=== PATIENT | female | born 1930 | race Caucasian/White ===

== ENCOUNTER → 2017-12-31 | Outpatient (CLI) | payer MEDICARE ==
[~2017-12-31] MED LIST: ALBU90OI INH; AMLO5 PO; ASPI81CH PO; BETA.05TO; BUDE6HFA INH; CITA20 PO; Cephalexin500 MG PO; Diflucan150 MG; ESTRTP VAG; FURO40 PO; HYDACE10B PO; HYDCHL12.5 PO; HYDR1TAB94 PO; Hydrocodone-Ap1 EA23 PO; LISI20 PO; OLAN5A MM; Omeprazole20 M1; POTCHL10ER; PRED10; Pravachol80 MG PO; Pravastatin Sod80 MG PO; Prinivil5 MG PO; Super B Comple150 MG PO; Zithromax250 MG PO
== END | disposition home or self-care (01) ==
LOC: LAB SHORT 07:33 → PLD 07:33
DX: C44.529 Squamous cell carcinoma of skin of other part of trunk (principal)
CPT/HCPCS: 88305

== ENCOUNTER 2018-01-11 12:24 | Emergency (ER) | payer MEDICARE ==
[~2018-01-11] VITALS: Ht 160 cm; Wt 68.0 kg
[2018-01-11] MEDS ORDERED: LISI20 (12:50)
[2018-01-11] MEDS ORDERED: PRED10 (12:50)
[2018-01-11] MEDS ORDERED: BUDE6HFA (12:50)
[2018-01-11] MEDS ORDERED: HYDCHL12.5 (12:50)
[2018-01-11] MEDS ORDERED: ALBU90OI (12:51)
[2018-01-11] MEDS ORDERED: HYDROCODON-ACE1 EAC3 (12:51)
[2018-01-11] MEDS ORDERED: CITA20 (12:51)
== END 2018-01-11 13:07 | disposition home or self-care (01) ==
LOC: ER 12:24
DX: S51.811A Laceration without foreign body of right forearm, initial encounter (principal); F03.90 Unspecified dementia, unspecified severity, without behavioral disturbance, psychotic disturbance, mood disturbance, and anxiety; Z79.899 Other long term (current) drug therapy; Z87.891 Personal history of nicotine dependence; W18.30XA Fall on same level, unspecified, initial encounter
CPT/HCPCS: 12002; 99283

== ENCOUNTER → 2018-02-17 | Outpatient (CLI) | payer MEDICARE ==
[~2018-02-17] MED LIST changes: +ALBU90OI; +BUDE6HFA; +CITA20; +HYDCHL12.5; +HYDROCODON-ACE1 EAC3; +LISI20
== END | disposition home or self-care (01) ==
LOC: LAB SHORT 09:31 → PLD 09:31
DX: C44.622 Squamous cell carcinoma of skin of right upper limb, including shoulder (principal)
CPT/HCPCS: 88305

== ENCOUNTER 2018-09-07 11:56 | Observation (INO) | payer MEDICARE ==
[~2018-09-07] VITALS: Ht 160 cm; Wt 63.7 kg
[~2018-09-07 11:56] MED LIST changes: -ALBU90OI; -BUDE6HFA; -CITA20; -HYDCHL12.5; -LISI20; +PRED10 PO
[2018-09-07 15:12] LABS: BASOPHILS ABSOLUTE AUTO 0.03 K/mm3 (0.00-0.23); BASOPHILS PERCENT AUTO 0 % (0-2); EOSINOPHILS ABSOLUTE AUTO 0.02 K/mm3 (0.00-0.68); EOSINOPHILS PERCENT AUTO 0 % (0-6); Hematocrit 41.3 % (33.0-51.0); Hemoglobin 13.6 g/dL (11.5-16.0); IMMATURE GRAN ABSOLUTE AUTO 0.19 K/mm3 (0.00-0.10); IMMATURE GRAN PERCENT AUTO 1 % (0-1); LYMPHOCYTES ABSOLUTE AUTO 1.15 K/mm3 (0.84-5.20); LYMPHOCYTES PERCENT AUTO 7 % (21-46); MONOCYTES ABSOLUTE AUTO 1.09 K/mm3 (0.16-1.47); MONOCYTES PERCENT AUTO 6 % (4-13); Mean Corpuscular HGB 32.5 pg (26.0-34.0); Mean Corpuscular HGB Conc 32.9 g/dL (31.5-36.5); Mean Corpuscular Volume 99 fL (80-100); Mean Platelet Volume 12.4 fL (9.1-12.4); NEUTROPHILS ABSOLUTE AUTO 14.88 K/mm3 (1.96-9.15); NEUTROPHILS PERCENT AUTO 86 % (41-73); Platelet Count 115 K/mm3 (150-400); RDW Coefficient Variation 13.4 % (11.7-14.2); Red Blood Cell Count 4.19 M/mm3 (3.80-5.20); White Blood Cell Count 17.36 K/mm3 (4.00-11.30)
[2018-09-07 15:38] LABS: Bun/Creatinine Ratio 26.3 (12.0-20.0); Calcium, Blood 9.3 mg/dL (8.5-10.1); Creatinine, Blood 1.18 mg/dL (0.40-1.00); Potassium, Blood 3.9 mmol/L (3.5-5.5)
[2018-09-07 16:32] LABS: Source, Urine Catheter
[2018-09-07 16:43] LABS: Appearance, Urine Clear (Clear); Bilirubin, Urine Neg (Neg); Blood, Urine 4+ (Neg); Color, Urine Yellow (P-Yellow); Glucose Qualitative, Urine Neg (Neg); Ketones, Urine Neg (Neg); Leukocyte Esterase, Urine Neg (Neg); Nitrite, Urine Neg (Neg); Protein, Urine Neg (Neg); Urobilinogen, Urine NORM (Normal)
[2018-09-07 16:59] LABS: White Blood Cells, Urine 0-2 /hpf (0-5)
[2018-09-07 17:00] LABS: Bacteria Not Seen /hpf; Mucus Light (0-Heavy); Squamous Epithelial Cells Rare /hpf (Few)
[2018-09-07] MEDS ORDERED: Super B-50 Com1 EACH PO (19:48)
--- NOTE | 2018-09-07 20:44 | NUR ---
PATIENT IS A NEW ADMIT FROM THE ED. THREE PERSON TRANSFER FROM [facility] TO BED. PATIENT IS BEDFAST. SEVERE DEMENTIA. NO HEALTH HX OBTAINABLE FROM PATIENT. ED RN ERIN REPORTS PRESENT IN ED FOR HEALTH HX AND WENT HOME. PATIENT ORIENTED TO SELF. SHORT TERM MEMORY DEFICIET. ON 2L O2 NC. SKIN TEARS WITH STERI STRIPS PLACE IN ED ON LEFT UPPER ARM/SHOULDER. DRESSING COMING OFF. WILL CONTINUE TO MONITOR.
--- NOTE | 2018-09-07 20:51 | NUR ---
PATIENT ACTIVATED BED ALARM TRYING TO EXIT BED. ED RN REPORTS PATIENT FELL AT HOME. PATIENT PUT BACK INTO BED. PATIENT NOT ABLE TO REORIENT. HX SEVERE DEMENTIA.
--- NOTE | 2018-09-07 20:59 | NUR ---
PATIENT PULLING HER GOWN OFF; PULLING AT IV SITE AND PULLING WOUND DRESSING OFF. GOWN PLACED BACK ON AND WOUND DRESSING WRAPPED.
--- NOTE | 2018-09-07 21:12 | NUR ---
PATIENT SWUNG LEGS TO SIDE OF BED. LEGS BACK INTO BED. PATIENT REPEATS WHO ARE YOU. BED ALARM ACTIVATED.
--- NOTE | 2018-09-07 22:15 | NUR ---
PATIENT ACTIVATED BED ALARM. TRYING TO EXIT BED. PULLING GOWN OFF AND PULLING AT WRAPPED IV. BED ALARM ACTIVATED.
--- NOTE | 2018-09-07 22:44 | NUR ---
RUI VEST AND BILATERAL SOFT WRIST RESTRAINTS ORDERED BY HOSPITALIST DR ROMERO. ORDERD PLACED.
--- NOTE | 2018-09-07 23:01 | NUR ---
PATIENT AGITATED AND HOSPITALIST DR ROMERO ORDERED ZYPREXA ZYDIS 5 MG X ONE. ORDERED PLACED.
--- NOTE | 2018-09-07 23:38 | NUR ---
PATIENT IN RUI VEST AND SOFT BILATERAL WRIST RESTRAINTS PER ORDER. PATIENT RESTING. ZYPREXA ZYDIS 5 MG PO GIVEN PER HOSPITALIST DR ROMERO.
--- NOTE | 2018-09-08 02:12 | NUR ---
PATIENT AWAKE SINCE ADMIT AT 20:00. CONTINUE TO ASK WHERE IS SHRUTHI. PATIENT NOT ABLE TO BE REORIENTED AT THIS TIME. RESTING IN BED. COVERS KICKED OFF AND WILL LEAVE OFF. WILL CONTINUE TO MONITOR.
--- NOTE | 2018-09-08 03:42 | NUR ---
SHIFT SUMMARY PATIENT IS A NEW ADMIT FROM THE ED. AXOX ONE TO SELF. HX SEVERE DEMENTIA. PATIENT TRIED TO EXIT THE BED FOR TWO HOURS BEFORE RUI AND BILATERAL SOFT WRIST RESTRAINTS ORDERED BY HOSPITALIST DR ROMERO. ZYPREXA ZYDIS ORDERED BY DR ROMERO X ONE FOR AGITATION 5 MG PO. PATIENT TOLERATING RESTRAINTS WELL FOR PATIENT SAFETY WITH HX OF FALLS. PIV REMAINS INTACT. ON 2L O2 NC AND RA BASELINE. ED STERI STRIPS ON LEFT UPPER ARM/SHOULDER SKIN TEAR. BEDFAST. PATIENT SHORT TERM MEMORY DEFICIT. REPEATS SAME QUESTION AFTER ANSWER WAS GIVEN. NOT ABLE TO REORIENT. NOT PRESENT FOR ADMIT. BED IN LOWEST POSITION. WILL CONTINUE TO MONITOR UNTIL DAY SHIFT NURSE ASSUMES CARE.
--- NOTE | 2018-09-08 06:34 | NUR ---
PATIENT AWAKE MOST OF THE SHIFT. WILL CONTINUE TO MONITOR
[2018-09-08] MEDS ORDERED: OXYC5 PO (12:43)
[2018-09-08] MEDS ORDERED: ACET325 PO (12:44)
[2018-09-08 13:30] LABS: Hematocrit 43.6 % (33.0-51.0); Hemoglobin 14.6 g/dL (11.5-16.0); Mean Corpuscular HGB 32.4 pg (26.0-34.0); Mean Corpuscular HGB Conc 33.5 g/dL (31.5-36.5); Mean Corpuscular Volume 97 fL (80-100); Mean Platelet Volume 12.5 fL (9.1-12.4); Platelet Count 114 K/mm3 (150-400); RDW Coefficient Variation 13.2 % (11.7-14.2); RDW Standard Deviation 47.1 fL (35.1-46.3); Red Blood Cell Count 4.51 M/mm3 (3.80-5.20); White Blood Cell Count 16.79 K/mm3 (4.00-11.30)
--- NOTE | 2018-09-08 18:59 | NUR ---
SHIFT SUMMARY STEPHANIE GOT OOB WITH PT ONCE WITH MAX ASSIST AND ONCE WITH A02 MAX TO BSC ONCE. DENIES PAIN IN BED, BUT SOME PAIN WITH STANDING. 5MG OXY GIVEN TO GOOD EFFECT. 2L OXYGEN, UNABLE TO WEAN DOWN TODAY, SATS 87-89 ON ROOM AIR. AND DAUGHTER AT BS MOST OF DAY. POSSIBLE SNF/MEMORY CARE OVER NEXT FEW DAYS. SKIN TEAR LUE CLEANED AND DRESSED TODAY. ENCOURAGED PO FLUIDS, BUT POOR INTAKE TODAY. INCONTINENT IN BRIEF. TOOK PILLS WHOLE WITH WATER. WCTM
--- NOTE | 2018-09-09 07:37 | NUR ---
in restraints for safety, complusive, wanted to get up and go home all night long and continued to try when not asleep, staff had to constantly redirect, Short term memory, 2L via nc, saline locked, call light in reach, walking rounds completed with day staff
--- NOTE | 2018-09-09 18:21 | NUR ---
SHIFT SUMMARY ALZHEIMER'S/DEMENTIA. REPEATEDLY ASKING SAME QUESTIONS. RUI. UNABLE TO STAND DUE TO WEAKNESS. FALLS AT HOME. SKIN TEAR TO LUE. COPD, AFIB. 2L PER NC.
--- NOTE | 2018-09-10 07:29 | NUR ---
alert at baseline, told repeatedly that she is at hospital due to fall at home, call paramjit in nessa, saline locked, 3L via ak
--- NOTE | 2018-09-10 18:40 | NUR ---
SHIFT SUMMARY ALZHEIMERS/DEMENTIA. REPETITIVELY ASKING SAME QUESTIONS. BED TO CHAIR 1-2 PERSON ASSIST. STANDS WITH MINIMAL ASSIST BUT WEAKNESS NOTED WHEN ATTEMPTING TO STEP FORWARD. MEDICATED IN A.M. FOR LEFT HIP PAIN. IN RECLINER LATER IN SHIFT QUIETLY READING NEWSPAPER. CHAIR ALARM ON. DECREASED PO INTAKE. INCONTINENT. POSSIBLE PLACEMENT TOMORROW; KINZA STRONG WORKING WITH PT AND SPOUSE.
--- NOTE | 2018-09-11 04:54 | NUR ---
SHIFT SUMMARY ALERT TO SELF; [place] AND EXTREMELY CONFUSED. CONTINUOUS RE-DIRECTION AND RE-ORIENTATION. DOES NOT KNOW WHERE SHE IS. CONTINUES TO TRY TO SELF TRANSFER FROM BED/CHAIR; BUT UNABLE TO STAND. REPLACED RUI VEST FOR SAFETY. OTHERWISE, VSS/AFEBRILE. RESPIRATIONS EVEN; EQUAL RISE AND FALL. NO OTHER ACUTE CHAGNES. BED IN LOWEST POSITION. ALARM ON. CALL LIGHT IN REACH. WCTM. REPORT TO ONCOMING RN.
--- NOTE | 2018-09-11 09:21 | NUR ---
GIVEN WARM PRUNE JUICE, MELTED PAT OF BUTTER AND APPLE JUICE. ADVISED PULLED IV BACK WINDER, NOT GETTING ANYTHING IV. NO IV ASSESS OK. MIRALAX PRN AND COLACE DAILY ORDERED.
--- NOTE | 2018-09-11 18:17 | NUR ---
ALERT TO SELF AND FAMILY. DOES NOT KNOW WHERE SHE IS. DEMENTIA. COOPERATIVE FOR THIS SHIFT, RUI Benitez'Gregory AT 10AM. ASSIST OOB TO CHAIR USING WALKER AND GAIT BELT. SHUFFLES FEET. NO C/O PAIN. ON 3 LPM OXYGEN VIA N/C. UNLABORED RESPIRATIONS. PATIENT HAS ONE HEARING AID IN TO LEFT SIDE. NO RT HEARING AID UPON DISTRICT SCOUT EXECUTIVE EVAL. HEARING AID NOT FOUND IN ROOM AND NOT SURE IF SHE HAD IT UPON ADMIT. RECEIVED NO IV ASSESS NEEDED PER . POSSIBLE D'C TO MEMORY CARE WHEN AVAILABLE. BED IN LOW POSITION. CALL LIGHT WITHIN REACH. WILL CONTINUE TO MONITOR.
--- NOTE | 2018-09-12 06:18 | NUR ---
SHIFT SUMMARY AROUND 0030 LAST NIGHT ER CALLED ME & NOTIFIED ME "PT IN 256 HAD CALLED 911, STATING SHE DIDN'T KNOW WHERE SHE WAS & WAS SCARED & COULDN'T MOVE." PT HAS BEEN AWAKE MOST OF NIGHT, CALLING OUT "SHRUTHI," & OTHER NAMES. PT VERY CONFUSED, AOX1. HX DEMENTIA. ASKS ME, "DO I HAVE A FAMILY?" PT DOES NOT KNOW WHERE SHE IS OR WHY SHE IS AT THE HOSPITAL, REORIENTED MULTIPLE TIMES & SOON I'M DONE TELLING PT WHERE SHE IS & WHY SHE STATES, "I DONT'T BELIEVE YOU, SOMETHING FISHY IS GOING ON." PT REPEATS THE SAME QUESTIONS. PT PLACED IN RUI VEST AROUND 0300 THIS AM DUE TO PT BEING A HIGH FALL RISK/IMPULSIVE & TRYING TO GET OOB W/O HELP, BED ALARM IS ALSO PLACED. VSS. DENIES N/V OR SOB. REPORTED BACK PAIN/R LEG PAIN THIS AM BUT REFUSED ANY MEDICATION. CALL LIGHT IS IN REACH & WCTM PT UNTIL DAY SHIFT RN ASSUMES CARE.
--- NOTE | 2018-09-12 17:51 | NUR ---
SUMMARY PT SITTING UP IN BED BEING ASSISTED WITH HER DINNER, PT HAS REMAINED CONFUSED ALL DAY AND DOES NOT REORIENT, DESPITE FAMILY BEING IN THE ROOM FOR MOST OF THE DAY, PT MED PER EMAR FOR PAIN, PT UP TO THE CHAIR SEVERAL TIMES WITH 2P ASSIST, VSS, NO ACUTE CHANGES, WILL CONT TO MONITOR
--- NOTE | 2018-09-12 20:18 | NUR ---
MOVED PT PT MOVED TO [facility] @ 2004. NOTIFIED SHRUTHI OF PT'S ROOM CHANGE @2019.
--- NOTE | 2018-09-13 04:56 | NUR ---
SHIFT SUMMARY: PT IS ALERT AND ORIENTED TO SELF, VERY CONFUSED OTHERWISE. PT IN VEST RESTRAINT, DID GET OUT OF IT ON ONE OCCASION, SET BED ALARM OFF. PT UP TO THE BSC WITH A 2 ASSIST ON ONE OCCASION. PT YELLING OUT AT TIMES WITH NO SPECIFIC NEED. PT ON 1 L O2 KEEPING SATS > 90%, WILL TAKE IT OFF AT TIMES AND HAVE MINOR DESATURATION. PT DENIES PAIN, NAUSEA, AND VOMITING. LUNGS ARE AUDIBLY COARSE AND WHEEZY. PT SLEPT INTERMITTENTLY THROUGHOUT THE NIGHT. NO ACUTE CHANGES OR COMPLICATIONS. BED IN LOW POSITION, CALL LIGHT WITHIN REACH.
--- NOTE | 2018-09-13 16:57 | NUR ---
SUMMARY PT HAS HX ALZ/DEMENTIA, SHE IS ORIENTED TO SELF & FAMILY HOWEVER VERY CONFUSED/DISORIENTED. IN RUI RESTRAINT D/T HIGH FALL RISK & CONFUSION. SHE HAS HAD FAMILY SITTING WITH HER MOST OF DAY & HAS BEEN ABLE TO REMAIN CALM. DX L PELVIC FX FROM FALL @ HOME. SHE HAS NOT HAD PAIN WHILE @ REST. SHE HAD NOT HAD BM X MULT DAYS, GAVE MIRALAX & COLACE SHE WAS ABLE TO HAVE XLRG BM ON BSC TODAY. PARTNER MARKETING INTERN REPORT NO SIGNIFICANT PAIN WHILE UP. SHE HAS BEEN SOMEWHAT FATIGUED, SLEEPING MOST OF DAY, AROUSES EASILY. VSS. STATE PT WILL D/C TO HOME WHEN APPROP, STATE HE IS WORKING TO PREPARE THE HOME.
--- NOTE | 2018-09-14 03:48 | NUR ---
BP 80/55, CALLED DR. QUARLES WHO ORDERED A 500 CC BOLUS. RECHECKED THE BP ONE MORE TIME BEFORE TRYING TO START AN IV AND IT HAD IMPROVED TO 101/55, DID NOT GIVE THE BOLUS.
--- NOTE | 2018-09-14 04:07 | NUR ---
SHIFT SUMMARY: PT IS ALERT TO SELF, VERY FORGETFUL, CONSTANTLY ASKING WHY SHE IS HERE, AND WHERE HERE IS. PT IS A 2 PERSON ASSIST TO THE BSC, MOSTLY CONTINENT. PT IS IN VEST RESTRAINT SHE IS TOO CONFUSED AND A VERY HIGH FALL RISK, WILL TRY TO GET OUT OF BED AND AMBULATE ON HER OWN. PT USING HER CALL LIGHT AT TIMES, BUT WITHOUT INTENT. PT DENIES PAIN, NAUSEA, VOMITING, AND SOB. PT SLEPT VERY LITTLE OVERNIGHT, CALLING OUT FOR FAMILY MEMBERS AND FOR HELP OFTEN. NO ACUTE CHANGES OR COMPLICATIONS OVERNIGHT. BED IN LOW POSITION, CALL LIGHT WITHIN REACH, BED ALARM SET. WILL REPORT TO DAY NURSE.
[2018-09-14 04:53] LABS: Hematocrit 41.5 % (33.0-51.0); Hemoglobin 13.5 g/dL (11.5-16.0); Mean Corpuscular HGB 31.9 pg (26.0-34.0); Mean Corpuscular HGB Conc 32.5 g/dL (31.5-36.5); Mean Corpuscular Volume 98 fL (80-100); Mean Platelet Volume 12.3 fL (9.1-12.4); Platelet Count 134 K/mm3 (150-400); RDW Coefficient Variation 13.4 % (11.7-14.2); RDW Standard Deviation 48.1 fL (35.1-46.3); Red Blood Cell Count 4.23 M/mm3 (3.80-5.20); White Blood Cell Count 10.51 K/mm3 (4.00-11.30)
[2018-09-14 05:19] LABS: Bun/Creatinine Ratio 62.2 (12.0-20.0); Calcium, Blood 9.8 mg/dL (8.5-10.1); Creatinine, Blood 1.8 mg/dL (0.40-1.00); Potassium, Blood 4.8 mmol/L (3.5-5.5)
--- NOTE | 2018-09-14 20:18 | NUR ---
SUMM- PT ALERT TO SELF AND FAMILY. SLEEPING THIS AM FOR ABOUT ONE HOUR. DAUGHTER INSISTED WE GET HER UP AND INTO A CHAIR AND GIVE HER COFFEE THOUGH PT HAD NOT SLEPT THROUGH THE NIGHT. GETS UP 2 PERSON MAX PIVOT TX WITH WALKER AND GAIT BELT. USING RUI RELATED TO IMPULSIVITY AND NO STM, WANTS TO GET UP AND ASKS FOR A KNIFE TO CUT HERSELF LOOSE. PULLING CONSTANTLY AT OXYGEN TUBING WONT KEEP IT IN PLACE. PULLS TELEVISION CAMERA OPERATOR LIGHT, DISROBES GOWN. BLANKETS ON GROUND. ASKS THE QUESTION, "WHATS GOING ON"- TOLD CIRCUMSTANCE AND ASKS SAME QUESTION AGAIN- ALL DAY ABOUT 400 TIMES. STAFF FREQ REORIENT OR STAY IN THE ROOM. PT OTHERWISE HALLING OUT "HEY". STARTED IV AND IVF AFTER DR BURNS EVALUATED PT THIS AM. PT PULLED IV OUT ABOUT 1830. PASSED REPORT TO FRANKY TO F/U WITH DR BURNS FOR HOW TO PROCEDE. PT BECOMING INCREASINGLY AGITATED THE LATER IT GETS.
--- NOTE | 2018-09-15 04:30 | NUR ---
SHIFT SUMMARY THE PATIENT PRESENTED THIS SHIFT A&O TO SELF ONLY, WITH LUNGS SOUNDS THAT WERE WHEEZEY THROUGHTOUT AND VITALS THAT WNL. THE PATIENT WAS RESTRIANED WITH A RUI VEST AND WHILE RESTRAINED, PULLED OUT HER IV. DR. BURNS WAS CONTACTED ABOU THE NEED FOR AM IV AND WAS ADDIMITT THAT THE PATIENT HAD A IV ACCESS AND FLUIDS RUNNING. THE DOCTOR GAVE ORDERS FOR SOLF WRIST RESTRAINTS TO BE USED TO MAINTAIN IV ACCESS. THE PATIENT HAD AN IV PLACED AND FLUIDS RESTARTED AND RESTRAINTS PUT IN PLACE. THE PATIENT HAS BEEN CONFUSED AND AWAKE ALL SHIFT, CALLING OUT. WILL CONTINUE TO MONITOR.
--- NOTE | 2018-09-15 04:51 | NUR ---
AT 0250 PT WAS GIVEN AN ALBUTEROL NEB TX VIA MASK, BS WERE DECREASED WITH UPPER AIRWAY WHEEZE. RA 91%, HR 74, RR 18. NOTE: LOCKED OUT OF PTS CHART, HELP DESK TICKET CREATED.
[2018-09-15 05:28] LABS: Hematocrit 36.7 % (33.0-51.0); Hemoglobin 11.9 g/dL (11.5-16.0); Mean Corpuscular HGB Conc 32.4 g/dL (31.5-36.5); Mean Corpuscular Volume 99 fL (80-100); Mean Platelet Volume 13.1 fL (9.1-12.4); Platelet Count 131 K/mm3 (150-400); RDW Coefficient Variation 13.4 % (11.7-14.2); RDW Standard Deviation 47.9 fL (35.1-46.3); Red Blood Cell Count 3.72 M/mm3 (3.80-5.20); White Blood Cell Count 13.48 K/mm3 (4.00-11.30)
[2018-09-15 06:00] LABS: Bun/Creatinine Ratio 52.9 (12.0-20.0); Calcium, Blood 9.6 mg/dL (8.5-10.1); Creatinine, Blood 1.7 mg/dL (0.40-1.00); Potassium, Blood 4.9 mmol/L (3.5-5.5)
--- NOTE | 2018-09-15 18:29 | NUR ---
SHIFT SUMMARY. ALERT, ORIENTATED TO SELF AND , AT BEDSIDE THIS AM AND THIS AFTERNOON. PT REPORTED CHRONIC PAIN TO HIP, RELIEVED WITH PRN ROXICODONE ONCE. PT WITH SPO2 85% ON RA, PLACED ON 1L O2 NC. NO N/V. POOR APPETITE. PT SLEEPING THIS AFTERNOON AFTER LUNCH, ASKED DR. POTTS IF WE COULD START THE NORVASC AND ONE TIME DOSE OF LASIX TOMORROW, DR. POTTS SAID YES. PER AND NURSE REPORT PT HAS NOT SLEPT MUCH AT ALL IN 48 HOURS. PT PARTICIPATED WITH PT/OT. AWAITING PLACEMENT. IV FLUIDS D/C'D.
--- NOTE | 2018-09-16 04:55 | NUR ---
SHIFT SUMMARY THE PATIENT PRESENTED THIS SHIFT WITH VITALS THAT EQUALED A VIEW SCORE OF 3. THE PATIENT HAD HAD BECOME IRRATATED AFTER WAKING UP CONFUSED. THE PATIENT'S LUNG SOUNDS ARE WHEEZEY THROUGHOUT. THE PATIENT MANAGED TO FREE ONE ARM FROM HER WRIST RESTRIANTS AND PULLED OUT HER IV. DOCTOR GRANT WAS CALLED AND AN ORDER FOR "NO IV ACCESS" WAS GIVEN BY THE DOCTOR AND RESTRIANTS WERE REDUCED TO A RUI VEST. THE PATIENT CONTINUES TO BE CONFUSED AND REQUIRES CALMING ON OCCASION. THE PATIENT HAS NOT SLEPT MUCH THIS SHIFT. WILL CONTINUE TO MONITOR.
[2018-09-16 05:20] LABS: BASOPHILS ABSOLUTE AUTO 0.03 K/mm3 (0.00-0.23); BASOPHILS PERCENT AUTO 0 % (0-2); EOSINOPHILS ABSOLUTE AUTO 0.12 K/mm3 (0.00-0.68); EOSINOPHILS PERCENT AUTO 1 % (0-6); Hematocrit 35.6 % (33.0-51.0); Hemoglobin 11.5 g/dL (11.5-16.0); IMMATURE GRAN ABSOLUTE AUTO 0.12 K/mm3 (0.00-0.10); IMMATURE GRAN PERCENT AUTO 1 % (0-1); LYMPHOCYTES ABSOLUTE AUTO 1.37 K/mm3 (0.84-5.20); LYMPHOCYTES PERCENT AUTO 12 % (21-46); MONOCYTES ABSOLUTE AUTO 1.07 K/mm3 (0.16-1.47); MONOCYTES PERCENT AUTO 9 % (4-13); Mean Corpuscular HGB 31.7 pg (26.0-34.0); Mean Corpuscular HGB Conc 32.3 g/dL (31.5-36.5); Mean Corpuscular Volume 98 fL (80-100); NEUTROPHILS PERCENT AUTO 77 % (41-73); Platelet Count 128 K/mm3 (150-400); RDW Coefficient Variation 13.4 % (11.7-14.2); RDW Standard Deviation 48.6 fL (35.1-46.3); Red Blood Cell Count 3.63 M/mm3 (3.80-5.20); White Blood Cell Count 11.91 K/mm3 (4.00-11.30)
[2018-09-16 06:12] LABS: Albumin, Blood 3.1 g/dL (3.4-5.0); Albumin/Globulin Ratio 1.1 (0.8-1.8); Bilirubin, Total 0.8 mg/dL (0.1-1.0); Bun/Creatinine Ratio 42.6 (12.0-20.0); Calcium, Blood 9.8 mg/dL (8.5-10.1); Creatinine, Blood 1.41 mg/dL (0.40-1.00); Globulin, Blood 2.8 g/dL (2.2-4.0); Magnesium, Blood 1.9 mg/dL (1.6-2.4); Potassium, Blood 4.7 mmol/L (3.5-5.5); Thyroid Stimulating Hormone 1.79 uIU/mL (0.360-4.800); Total Protein, Blood 5.9 g/dL (6.4-8.2)
--- NOTE | 2018-09-16 18:33 | NUR ---
SUMMARY PT CONTINUES DISORIENTED/CONFUSED, @ X'S IRRITABLE. HX ALZ/DEMENTIA. SHE IS IN RUI VEST RESTRAINT D/T CONFUSION, UNSTEADY GAIT, HIGH FALL RISK & ATTEMPTING UP W/O ASSIST. SHE IS RECOVERING FROM L PELVIC FX D/T FALL @ HOME. & DAUGHTER SUPPORTIVE, WORKING WITH [employer] FOR APPROPRIATE MEMORY CARE PLACEMENT. PT HAS BEEN UP IN CHAIR MUCH OF DAY. THIS AM RAIL BENDER ASSIST HER TO SHOWER. PHYTHER IN FOR TX TODAY, PT AMBULATE IN [place] WITH FWW. SHE WAS SOB W EXERTION, WHEEZY, PLACED ON O2 @ 2L, BIOX 92%. SHE APPEARS PAINFUL WITH AMBULATION THIS AM, PRN OXYCODONE GIVEN.
--- NOTE | 2018-09-17 06:01 | NUR ---
*SHIFT SUMMARY* PATIENT IS AWAKE AND TALKS WITH STAFF. VERY CONFUSED AND FORGETFUL. PATIENT IS IN RUI VEST FOR SAFETY. PATIENT CONTINUALLY TAKES OFF NASAL CANNULA. PATIENT TOOK HER GLASSES OFF AND BROKE THEM THROUGHOUT THE NIGHT. BROKEN PIECES ARE PLACED IN A BAG AT BEDSIDE. PATIENT DID NOT SLEEP THROUGHOUT THE NIGHT, SHE TRIED TO GET OUT OF HER RUI ALL NIGHT, TAKING OFF HER ATTENDS AND PULLING AT THE STRAPS OF THE RUI VEST. EARLY THIS AM PATIENT SUCCESSFULLY GOT OUT OF THE RUI VEST AND SET OFF BED ALARM. THIS RN AND VAMP MARKER ASSISTED PATIENT WITH GETTING IN A NEW GOWN AND RUI VEST AND REPOSITIONED, WRIST RESTRAINTS APPLIED. PATIENT DOES NOT COMPLAIN OF PAIN OR SHORTNESS OF BREATH YET HAS AUDIBLE WHEEZING. NASAL CANNULA AT 1L/MIN REAPPLIED TO PATIENT. CALL LIGHT WITHIN REACH, BED LOWERED AND LOCKED WITH ALARM ON.
--- NOTE | 2018-09-17 19:49 | NUR ---
SUMMARY PT CONTINUES IN RUI RESTRAINT, CONFUSED, HIGH FALL RISK, UNPREDICTABLE BEHAVIOR. SHE HAS BEEN UP IN CHAIR, AMBULATE IN ROOM W FWW TODAY. PARTICIPATE W PHYTHER. SHE GETS SOB/WHEEZY W EXERT, HAS REQUIRED NEBS & O2 PRN. @ REST 90-92 % RA. SHE SEEMS LESS PAINFUL TODAY, PRN OXYCODONE GIVEN THIS AM, HAS STATED NO PAIN WHEN ASKED THE REST OF DAY. VSS. [employer] WORKING W FAMILY FOR PLACEMENT.
--- NOTE | 2018-09-18 05:46 | NUR ---
*SHIFT SUMMARY* PATIENT IS CONFUSED AND IN RUI VEST WITH SOFT BILATERAL WRIST RESTRAINTS. AT BEGINING OF SHIFT PATIENT WAS JUST IN RUI VEST. PATIENT WAS FOUND TO HAVE TAKEN HER RUI VEST OFF AGAIN AND WAS SITTING AT THE EDGE OF THE BED NAKED. ASSISTED PATIENT BACK INTO RUI VEST AND REPOSITIONED IN BED, ORDER OBTAINED FOR BILATERAL WRIST RESTRAINTS WELL RUI VEST. THIS ORDER WILL 09/18/18 AT 2112. PATIENT DID NOT YELL OUT LIKE SHE DID LAST NIGHT, INSTEAD SHE SLEPT WELL. CALL LIGHT IN REACH, BED LOWERED AND LOCKED.
[2018-09-18] MEDS ORDERED: GAVILAX17 GM PO (11:20)
[2018-09-18] MEDS ORDERED: AMLO5 PO (11:21)
[2018-09-18] MEDS ORDERED: DOCU100 PO (11:22)
[2018-09-18] MEDS ORDERED: OLAN5 PO (11:23)
[2018-09-18] MEDS ORDERED: ROXICODONE5 MG (11:24)
--- NOTE | 2018-09-18 12:37 | NUR ---
DISCHARGE SUMMARY PT DISCHARGED TO [facility]. REPORT CALLED AND GIVEN TO WILBER AT 1145. PT LEFT ROOM VIA WHEELCHAIR AND [facility] AT 1140 WITH PT'S DAUGHTER PRESENT. NO IV IN PLACE. BELONGINGS RETURNED INCLUDING HEARING AIDES AND DENTURES.
== END 2018-09-18 11:51 ==
LOC: DELPENDDIS → ER 11:56 → MEDS 11:57 → ENPENDDIS 09-08 12:39 → MEDS 09-08 20:50 → ENPENDDIS 09-18 10:51 → EDPENDDIS 09-18 10:51 → MEDS 09-18 11:51
PROVIDERS: Emergency Medicine; Internal Medicine; Physician Assistant; ADMIT Internal Medicine
DX: S32.592A Other specified fracture of left pubis, initial encounter for closed fracture (principal); S41.112A Laceration without foreign body of left upper arm, initial encounter; N17.9 Acute kidney failure, unspecified; G30.9 Alzheimer's disease, unspecified; F02.80 Dementia in other diseases classified elsewhere, unspecified severity, without behavioral disturbance, psychotic disturbance, mood disturbance, and anxiety; N18.3 Chronic kidney disease, stage 3 (moderate); I48.0 Paroxysmal atrial fibrillation; J44.9 Chronic obstructive pulmonary disease, unspecified; D72.829 Elevated white blood cell count, unspecified; F17.290 Nicotine dependence, other tobacco product, uncomplicated; Z79.899 Other long term (current) drug therapy; W01.0XXA Fall on same level from slipping, tripping and stumbling without subsequent striking against object, initial encounter; Y92.009 Unspecified place in unspecified non-institutional (private) residence as the place of occurrence of the external cause
CPT/HCPCS: 36415; 70450; 72100; 72193; 73030; 73502; 80048; 80053; 81001; 83735; 84443; 85025; 85027; 94640; 94760; 96360; 96361; 96372; 96372-59; 97110; 97116; 97162; 97166; 97530; 97535; 99285-25; G0378; J1650; J3010; J7120; P9612; Q9967

== ENCOUNTER → 2018-10-27 | Outpatient (CLI) | payer MEDICARE ==
[~2018-10-27] MED LIST changes: +ACET325 PO; +DOCU100 PO; +GAVILAX17 GM PO; +OLAN5 PO; +OXYC5 PO; +ROXICODONE5 MG; +Super B-50 Com1 EACH PO
== END | disposition home or self-care (01) ==
LOC: LAB HH 15:29
DX: S01.309A Unspecified open wound of unspecified ear, initial encounter (principal)
CPT/HCPCS: 87070; 87077; 87147; 87186; 87205

== ENCOUNTER 2018-11-24 09:17 | Inpatient (IN) | payer MEDICARE ==
[~2018-11-24] VITALS: Ht 157.5 cm; Wt 57.2 kg
[~2018-11-24 09:17] MED LIST changes: -ROXICODONE5 MG; +ROXICODONE5 MG PO
[2018-11-24 10:38] LABS: BASOPHILS ABSOLUTE AUTO 0.02 K/mm3 (0.00-0.23); BASOPHILS PERCENT AUTO 0 % (0-2); EOSINOPHILS ABSOLUTE AUTO 0.15 K/mm3 (0.00-0.68); EOSINOPHILS PERCENT AUTO 1 % (0-6); Hematocrit 44.1 % (33.0-51.0); Hemoglobin 13.4 g/dL (11.5-16.0); IMMATURE GRAN ABSOLUTE AUTO 0.08 K/mm3 (0.00-0.10); IMMATURE GRAN PERCENT AUTO 1 % (0-1); LYMPHOCYTES ABSOLUTE AUTO 0.87 K/mm3 (0.84-5.20); LYMPHOCYTES PERCENT AUTO 7 % (21-46); MONOCYTES PERCENT AUTO 8 % (4-13); Mean Corpuscular HGB 30.9 pg (26.0-34.0); Mean Corpuscular HGB Conc 30.4 g/dL (31.5-36.5); Mean Corpuscular Volume 102 fL (80-100); Mean Platelet Volume 11.9 fL (9.1-12.4); NEUTROPHILS ABSOLUTE AUTO 10.53 K/mm3 (1.96-9.15); NEUTROPHILS PERCENT AUTO 83 % (41-73); Platelet Count 165 K/mm3 (150-400); RDW Coefficient Variation 14.4 % (11.7-14.2); RDW Standard Deviation 54.7 fL (35.1-46.3); Red Blood Cell Count 4.33 M/mm3 (3.80-5.20); White Blood Cell Count 12.65 K/mm3 (4.00-11.30)
[2018-11-24 10:55] LABS: Albumin, Blood 3.2 g/dL (3.4-5.0); Albumin/Globulin Ratio 0.9 (0.8-1.8); Bilirubin, Total 0.9 mg/dL (0.1-1.0); Calcium, Blood 9.8 mg/dL (8.5-10.1); Creatinine, Blood 1.06 mg/dL (0.40-1.00); Globulin, Blood 3.7 g/dL (2.2-4.0); Potassium, Blood 4.6 mmol/L (3.5-5.5); Total Protein, Blood 6.9 g/dL (6.4-8.2)
--- NOTE | 2018-11-24 15:00 | NUR ---
SKIN TEARS/SKIN CONDITION WHEN PT ARRIVES TO UNIT, PT IS FOUND TO HAVE SEVERAL SKIN TEARS AND SCABS. SCATTERED T/O ARMS AND LEGS. STERI STRIPS ON L SHOULDER ABRASION, R ZEPEDA, L LATERAL KNEE, BRUISING ON ARMS, SHOULDERS, AND LEGS. PT BECOMES AGIATED WHEN PHOTOS ATTEMPTED. STATES THIS IS FROM FREQUENT FALLS AND CHRONICALLY BEING ON PREDNISONE.
--- NOTE | 2018-11-24 16:29 | NUR ---
CRAWLING OUT OF BED AFTER PATIENT REDIRECTED SEVERAL TIMES, BED ALARM ON, AT BEDSIDE REDIRECTING AND REORIENTING EVERY 5 MINS, PATIENT CONTINUES TO ATTEMPT TO CRAWL OUT OF BED. RUI KAY ORDERED FROM .
[2018-11-24 20:52] LABS: Source, Urine Catheter
[2018-11-24 20:56] LABS: Bilirubin, Urine Neg (Neg); Blood, Urine 1+ (Neg); Glucose Qualitative, Urine Neg (Neg); Ketones, Urine Neg (Neg); Leukocyte Esterase, Urine 3+ (Neg); Nitrite, Urine Neg (Neg); Protein, Urine 2+ (Neg); Urobilinogen, Urine 1+ (Normal)
[2018-11-24 20:58] LABS: Appearance, Urine Clear (Clear); Color, Urine Yellow (P-Yellow)
[2018-11-24 21:01] LABS: Bacteria Mod /hpf; Red Blood Cells, Urine 0-2 /hpf (0-2); Squamous Epithelial Cells Few /hpf (Few); White Blood Cells, Urine 25-50 /hpf (0-5)
[2018-11-25 05:18] LABS: BASOPHILS ABSOLUTE AUTO 0.03 K/mm3 (0.00-0.23); BASOPHILS PERCENT AUTO 0 % (0-2); EOSINOPHILS ABSOLUTE AUTO 0.15 K/mm3 (0.00-0.68); EOSINOPHILS PERCENT AUTO 1 % (0-6); Hematocrit 44.3 % (33.0-51.0); Hemoglobin 13.4 g/dL (11.5-16.0); IMMATURE GRAN ABSOLUTE AUTO 0.06 K/mm3 (0.00-0.10); IMMATURE GRAN PERCENT AUTO 1 % (0-1); LYMPHOCYTES ABSOLUTE AUTO 1.55 K/mm3 (0.84-5.20); LYMPHOCYTES PERCENT AUTO 13 % (21-46); MONOCYTES ABSOLUTE AUTO 1.08 K/mm3 (0.16-1.47); MONOCYTES PERCENT AUTO 9 % (4-13); Mean Corpuscular HGB 30.7 pg (26.0-34.0); Mean Corpuscular HGB Conc 30.2 g/dL (31.5-36.5); Mean Corpuscular Volume 101 fL (80-100); Mean Platelet Volume 12.1 fL (9.1-12.4); NEUTROPHILS ABSOLUTE AUTO 9.18 K/mm3 (1.96-9.15); NEUTROPHILS PERCENT AUTO 76 % (41-73); Platelet Count 173 K/mm3 (150-400); RDW Coefficient Variation 14.3 % (11.7-14.2); RDW Standard Deviation 53.5 fL (35.1-46.3); Red Blood Cell Count 4.37 M/mm3 (3.80-5.20); White Blood Cell Count 12.05 K/mm3 (4.00-11.30)
[2018-11-25 05:39] LABS: Anion Gap 5 mmol/L (6-16); Blood Urea Nitrogen 20 mg/dL (8-24); Bun/Creatinine Ratio 25.1 (12.0-20.0); CO2, Blood 29 mmol/L (21-32); Calcium, Blood 9.5 mg/dL (8.5-10.1); Chloride, Blood 107 mmol/L (98-108); Glomerular Filtration Rate >60 (60-); Glucose, Blood 81 mg/dL (70-99); Potassium, Blood 4.1 mmol/L (3.5-5.5); Sodium, Blood 141 mmol/L (136-145)
--- NOTE | 2018-11-25 06:19 | NUR ---
SUMMARY NO CHANGES FROM ASSESSMENT. IV FLUIDS INFUSING PER EMAR. PT CONTINUES TO REFUSE PAIN MEDICINE. MOVES ALL EXTREMITIES AND TRIES TO GET OUT OF BED. RUI VEST IN PLACE, BED ALARM IS ON, CIRC WNL. BED ROTHMAN USED PRN.
--- NOTE | 2018-11-25 09:40 | NUR ---
SKIN AFTER STEM SIZER PERFORMED BED BATH, PROTECTIVE MEPILEX DRESSING APPLIED TO COCCYX. HEEL PROTECTORS APPLIED TO BILAT HEELS AND FLOATED ON PILLOW. PT REPOSITIONED SUPINE AT THIS TIME.
--- NOTE | 2018-11-25 11:55 | NUR ---
PT TRANSPORTED TO [facility]. PT HAS ALZHEIMERS, AT BEDSIDE SPEAKING ON PATIENTS BEHALF. LUNG SOUNDS CLEAR.
--- NOTE | 2018-11-25 12:00 | NUR ---
PT TO DAY SURGERY AT THIS TIME.
--- NOTE | 2018-11-25 16:02 | NUR ---
POST OP POST OP VS IN PROGRESS AND STABLE. AQUACEL DRESSING TO LEFT HIP IS CDI WITH PILLOW WEDGE IN BETWEEN HIPS. IVF INFUSING PER ORDERS. PT APPEARS TO BE COMFORTABLE AT REST. MARTÍNEZ WITH CLEAR YELLOW URINE. BED ALARM ON FOR SAFETY. FAMILY AT BEDSIDE FOR SUPPORT. WATER AT BEDSIDE. WILL CONT TO MONITOR.
--- NOTE | 2018-11-25 17:58 | NUR ---
SHIFT SUMMARY S/P LEFT HIP REPAIR. POST OP VSS AND IN PROGRESS. NO S/S DISTRESS OR PAIN NOTED WHILE PT AT REST. AQUACEL DRESSING TO L HIP IS CDI. RUI VEST PLACED PT STARTED PULLING AT LINES/CORDS. BED ALARM ON AND SIDE RAILS UP X4 AND BED IN LOW POSITION. IVF INFUSING PER ORDERS. MARTÍNEZ INTACT WITH CLEAR YELLOW URINE. FREQUENT ROUNDING BY STAFF.
--- NOTE | 2018-11-26 04:25 | NUR ---
SHIFT SUMMARY: PT POD #1 FOR L HIP REPAIR. PT CONFUSED THROUGHOUT SHIFT. ORIENTED TO SELF. RUI VEST ON FOR SAFETY. ORDER TO BE RENEWED AT 1700 TODAY. BED ALARM ON AND SIDE RAILS UP X4. PT APPEARS TO BE COMFORTABLE. NO GRIMACE NOTED. COOPERATIVE WITH CARE. AGITATED AT TIMES. STERI STRIPS AND DRESSING CHANGED ON RIGHT ARM. POOR PO INTAKE. FLUIDS INFUSING.
[2018-11-26 05:13] LABS: BASOPHILS ABSOLUTE AUTO 0.02 K/mm3 (0.00-0.23); BASOPHILS PERCENT AUTO 0 % (0-2); EOSINOPHILS ABSOLUTE AUTO 0.07 K/mm3 (0.00-0.68); EOSINOPHILS PERCENT AUTO 1 % (0-6); Hematocrit 39.6 % (33.0-51.0); Hemoglobin 12.1 g/dL (11.5-16.0); IMMATURE GRAN ABSOLUTE AUTO 0.07 K/mm3 (0.00-0.10); IMMATURE GRAN PERCENT AUTO 1 % (0-1); LYMPHOCYTES ABSOLUTE AUTO 1.14 K/mm3 (0.84-5.20); LYMPHOCYTES PERCENT AUTO 8 % (21-46); MONOCYTES ABSOLUTE AUTO 1.45 K/mm3 (0.16-1.47); MONOCYTES PERCENT AUTO 10 % (4-13); Mean Corpuscular HGB Conc 30.6 g/dL (31.5-36.5); Mean Corpuscular Volume 102 fL (80-100); Mean Platelet Volume 11.8 fL (9.1-12.4); NEUTROPHILS ABSOLUTE AUTO 11.14 K/mm3 (1.96-9.15); NEUTROPHILS PERCENT AUTO 80 % (41-73); Platelet Count 164 K/mm3 (150-400); RDW Coefficient Variation 14.3 % (11.7-14.2); RDW Standard Deviation 53.8 fL (35.1-46.3); White Blood Cell Count 13.89 K/mm3 (4.00-11.30)
[2018-11-26 05:38] LABS: Anion Gap 6 mmol/L (6-16); Blood Urea Nitrogen 19 mg/dL (8-24); Bun/Creatinine Ratio 21.8 (12.0-20.0); CO2, Blood 27 mmol/L (21-32); Calcium, Blood 8.8 mg/dL (8.5-10.1); Chloride, Blood 107 mmol/L (98-108); Creatinine, Blood 0.87 mg/dL (0.40-1.00); Glomerular Filtration Rate >60 (60-); Glucose, Blood 165 mg/dL (70-99); Potassium, Blood 4.2 mmol/L (3.5-5.5); Sodium, Blood 140 mmol/L (136-145)
--- NOTE | 2018-11-26 10:01 | NUR ---
11/26/18 1001 Nazanin Rico VERIFICATIONS: EDIT CHART.
--- NOTE | 2018-11-26 12:00 | NUR ---
REPORT FROM STEPHANIE ECHOLS RN. ASSUMED PT CARE.
--- NOTE | 2018-11-26 12:22 | NUR ---
PT SITTING UP IN CHAIR. SPOUSE AT BEDSIDE ATTEMPTING TO ASSIST PT WITH EATING LUNCH. PT VERY DROWSY AT THIS TIME. WAKES TO VERBAL STIMULI,NADN. PT NOT INTERSTED IN FOOD AT THIS TIME.
--- NOTE | 2018-11-26 13:01 | NUR ---
PT LEAVING FOR THE AFTERNOON. PT RESTING IN POSITION OF COMFORT. NADN. TAB ALARM IN PLACE FOR PT SAFETY.
--- NOTE | 2018-11-26 14:46 | NUR ---
SKIN TEAR NOTED TO LEFT CALF. AREA CLEANED AND MEPILEX APPLIED.
--- NOTE | 2018-11-26 15:35 | NUR ---
EYES CLEANED AND OINTMENT APPLIED. BP RECHECKED DUE TO HIGH READING EARLIER. WNL AT THIS TIME. PT HAS SPORADIC MUSCLE MOVEMENTES. PT DOES NOT ANSWER QUESTIONS. OPENS EYES TO VERBAL STIMULI.
--- NOTE | 2018-11-26 15:52 | NUR ---
SATS ON 1L 88%. INCREASED 02 TO 2L. DENIES PAIN. ASKING FOR PHONE.
--- NOTE | 2018-11-26 16:50 | NUR ---
ASSUMED CARE OF PATIENT AT THIS TIME. PATIENT SLEEPING IN RECLINER W/O S/SX DISTRESS. CONT TO MONITOR.
--- NOTE | 2018-11-26 18:59 | NUR ---
PATIENT REFUSED DINNER FROM SPOUSE AND DRAGSAW OPERATOR. HAS CONT TO SLEEP. TAB ALARM IN PLACE.
--- NOTE | 2018-11-27 06:10 | NUR ---
SHIFT SUMMARY: PT RESTING T/O SHIFT. APPEARS TO BE COMFORTABLE AND LESS AGITATED. NO GRIMACES NOTED. VERY POOR PO INTAKE. OFFERED FLUIDS AND PUDDING; PT REFUSED. LOW URINE OUTPUT. MARTÍNEZ D/C AT APPROX 0530. ATTENDS ON FOR COMFORT. RUI VEST AND MITT RESTRAINTS D/C AT APPROX 0500. PT ROUNDED ON FREQ. SAFETY MEASURES IN PLACE.
--- NOTE | 2018-11-27 17:26 | NUR ---
SHIFT SUMMARY PT CONFUSED, PLEASANT AND COOPERATIVE WITH CARE. POD2 L DODIE HIP, AQUACEL CDI, CHANGED TODAY. AMB 2 PP MOD/MAX ASSIST W/FWW & GB TO CHAIR AND BSC. ATTENDS ON. PAIN MANAGED WITH TYLENOL. NEEDS FULL MEAL ASSIST W/PO INTAKE. WCTM UNTIL REPORT GIVEN TO NEXT RN.
--- NOTE | 2018-11-28 04:01 | NUR ---
ASSUMED CARE OF PT. PT TRANSFER FROM CHAIR TO BSC NO VOID S/P MARTÍNEZ DCD PER DAY SHIFT. PT UNABLE TO VOID AND BLADDER SCAN WAS GREATER THAN 400 ML. I/O CATH FOR DARK MITCH URINE. SHELIA CARE DONE PRIOR TO CATH PT APPEARS TO HAVE ? YEASTLIKE DISCHARGE.PREP FOR CATH SAME ROUTINE WELL SHELIA CARE. WILL ADVISE DAY RN TO FOLLOW UP ON POSSIBLE YEAST.
--- NOTE | 2018-11-28 19:31 | NUR ---
SHIFT SUMMARY PAIN HAS BEEN MANAGED WITH TYLENOL. PT HAS REMAINED CONFUSED THIS SHIFT. SHE IS A 2 ASSIST WHEN OOB. BED ALARM HAS BEEN IN PLACE. REPORT GIVEN TO STACY BLACKMON.
--- NOTE | 2018-11-28 20:19 | NUR ---
RECEIVED IN REPORT THAT PT HAD NOT VOIDED DURING THE DAY AND HAD REQUIRED A STRIAGHT CATH ON NOC SHIFT 11/27. PT IS CONFUSED AND HAS POOR INTAKE, ATTEMPTING TO PUSH FLUIDS. BLADDER SCAN AT [address] BARNARD TO REQUEST IV HYDRATION, ORDERS GIVEN. ALSO RECEIVED ORDER FOR A 1 TIME DOSE OF DIFLUCAN THE TOBACCO FEEDER CATCHER RN WHO HAD DONE THE STRAIGHT CATH REPORTED A YEASTY DISCHARGE PRESENT AT THE TIME.
--- NOTE | 2018-11-29 06:29 | NUR ---
SHIFT SUMMARY PT IS POD 4 LEFT DODIE HIP, AWAITING RETURN TO [place] [address], LIKELY FRIDAY. PT HAD A FALL LAST NIGHT GETTING UP BY HERSELF, THOUGH BED ALARM WAS ON IT COULD NOT BE GOTTEN TO FAST ENOUGH. SHE GAVE HERSELF A NEW SKIN TEAR TO THE RIGHT FIFTH FINGER AND BRUISING TO THE 4TH AND 5TH FINGERS ON THE RIGHT SIDE. PT IS CONFUSED, THOUGH COOPERATIVE WITH MEDICATIONS. 2 ASSIST UP, PT CAN PIVOT TRANSFER WITH A GB AND 1 ASSIST. PT UP TO CHAIR THIS AM. WILL CTM UNTIL PASS TO NEXT SHIFT.
--- NOTE | 2018-11-29 18:38 | NUR ---
AGGITATION/ANXIETY PT HAS BEEN AGGITATED AND ANXIOUS THIS AFTERNOON. SHE FREQUENTLY ATTEMPTS TO GET OOB. SHE HAS ALSO REMOVED THE SPLINT FROM HER L ARM MULTIPLE TIMES.
--- NOTE | 2018-11-30 05:40 | NUR ---
SHIFT SUMMARY PT IS POD 4 LEFT DODIE HIP. SHE IS AWAITING RETURN TO [place] [address]. PT IS A 2 ASSIST FOR PIVOT TRANSFERS TO [place]. HX DEMENTIA, BED ALARM ON, PT TRIED TO GET OUT OF BED FREQUENTLY AT THE BEGINNING OF SHIFT BUT CALMED AND SLEPT SOME TIME AFTER MIDNIGHT. SHE REMOVED HER LEFT WRIST SPLINT FREQUENTLY SO THAT WAS LEFT OFF AFTER A WHILE. ENCOURAGING FLUIDS. PT WAS ABLE TO VOID OVERNIGHT. NO FURTHER ACUTE CHANGES. WILL CTM UNTIL PASS TO NEXT SHIFT.
--- NOTE | 2018-11-30 09:30 | NUR ---
DR SERRANO RECENTLY HERE.
--- NOTE | 2018-11-30 11:17 | NUR ---
THERAPY IN WITH PT. FAMILY PRESENT.
--- NOTE | 2018-11-30 18:10 | NUR ---
SHIFT SUMMARY PT SLEPT A LOT TODAY. THERAPY IN TO SEE PT THIS MORNING. SCALLOP CUTTER IN TO TALK WITH PATIENT AND FAMILY TODAY. PT EATING, DRINKING, VOIDING. NEEDED 2X ASSIST TO BEDSIDE COMMODE. PT UP TO CHAIR TODAY AND REPOSITIONED SEVERAL TIMES THROUGHOUT THE DAY. FAMILY HAS BEEN IN TO VISIT PT. PT HAS BEEN CONFUSED AT TIMES TODAY.
--- NOTE | 2018-11-30 18:26 | NUR ---
PT HAS BEEN CONFUSED THROUGHOUT THE DAY. BED ALARM, CHAIR ALARM, AND TAB ALARMS HAVE BEEN USED CONTINUOUSLY TODAY. PT HAS BEEN TRYING TO GET UP PRIMARILY TO USE THE BATHROOM. BRIEF IS IN PLACE.
[2018-12-01 10:59] LABS: BASOPHILS ABSOLUTE AUTO 0.02 K/mm3 (0.00-0.23); BASOPHILS PERCENT AUTO 0 % (0-2); EOSINOPHILS PERCENT AUTO 1 % (0-6); Hematocrit 36.9 % (33.0-51.0); IMMATURE GRAN ABSOLUTE AUTO 0.09 K/mm3 (0.00-0.10); IMMATURE GRAN PERCENT AUTO 1 % (0-1); LYMPHOCYTES ABSOLUTE AUTO 1.48 K/mm3 (0.84-5.20); LYMPHOCYTES PERCENT AUTO 17 % (21-46); MONOCYTES ABSOLUTE AUTO 0.89 K/mm3 (0.16-1.47); MONOCYTES PERCENT AUTO 10 % (4-13); Mean Corpuscular HGB 30.6 pg (26.0-34.0); Mean Corpuscular HGB Conc 29.8 g/dL (31.5-36.5); Mean Corpuscular Volume 103 fL (80-100); NEUTROPHILS ABSOLUTE AUTO 6.29 K/mm3 (1.96-9.15); NEUTROPHILS PERCENT AUTO 71 % (41-73); Platelet Count 210 K/mm3 (150-400); RDW Coefficient Variation 14.1 % (11.7-14.2); RDW Standard Deviation 53.4 fL (35.1-46.3); Red Blood Cell Count 3.59 M/mm3 (3.80-5.20); White Blood Cell Count 8.87 K/mm3 (4.00-11.30)
[2018-12-01 11:14] LABS: Anion Gap 6 mmol/L (6-16); Blood Urea Nitrogen 20 mg/dL (8-24); Bun/Creatinine Ratio 27.5 (12.0-20.0); CO2, Blood 26 mmol/L (21-32); Calcium, Blood 9.2 mg/dL (8.5-10.1); Chloride, Blood 108 mmol/L (98-108); Creatinine, Blood 0.73 mg/dL (0.40-1.00); Glomerular Filtration Rate >60 (60-); Glucose, Blood 96 mg/dL (70-99); Sodium, Blood 140 mmol/L (136-145)
--- NOTE | 2018-12-01 11:37 | NUR ---
VEST RESTRAINT PLACED PER ORDER.
--- NOTE | 2018-12-01 17:53 | NUR ---
SHIFT SUMMARY PT HAS VEST RESTRAINT IN PLACE FOR PT'S SAFETY. PT BEEN ASSISTED WITH ADL'S PRN MULT TIMES. RESTRAINTS BEEN CHECKED MULT TIMES. PT BEEN UP TO BSC MULT TIMES TODAY WITH ASSIST. FAMILY IN ROOM FOR SHORT TIME TODAY. PT WAS CHANGED TO COMFORT CARE TODAY AND FAMILY IS PLANNING ON TAKING PT HOME WITH HOSPICE TOMMORROW IF ALL ARRANGEMENTS ARE MADE. PT BEEN ASSISTED WITH ADL'S PRN MULT TIMES. PT MED FOR PAIN PRN. PO INTAKE BEEN ENCOURAGED MULT TIMES TODAY.
--- NOTE | 2018-12-02 08:16 | NUR ---
SHIFT SUMMARY PT ALERT T/O SHIFT, ORIENTED TO SELF, OCC TO SITUATION/PLACE. SKAGWAY. PT POST L HIP HEMIARTHROPLASTY. PT PULLED IV; CATHETER INTACT. PT REMOVED DRESSING TO L HIP. SITE CLEANSED; NEW DRESSING PLACED, CDI AT THIS TIME. PAIN MANAGED PER EMAR. PT UP WITH 1 MAX ASSIST AND SECOND STAFF TO HELP TO BSC AND TRASFER FROM RECLINER TO BED AND BACK TO RECLINER. VOIDING WELL; SMALL SOFT BM. BED ALARM, SIDE RAILS X3 AND TAB ALARM WHILE IN CHAIR. RUI VEST RESTRAINT T/O SHIFT. PT STILL FREQUENTLY ATTEMPTED TO GET OOB. LITTLE PO INTAKE; PT REFUSED ORAL CARE. MULTIPLE BRUISES AND SKIN TEARS OVER ALL EXT AND SHOULDERS; SEVERAL MEPLIEX TO BODY/JOINTS. CALL LIGHT IN REACH. REPORT GIVEN TO DAY SHIFT RN.
[2018-12-02] MEDS ORDERED: TAMS.4ER PO (10:52)
--- NOTE | 2018-12-02 10:52 | NUR ---
Palliative Care/comfort care visit and case conference. [employer]ctor reported pt being very mobile in bed, picking at dressings, exhibiting agitation. Pt has multiple wound dressings, recent fx hip and recent fx wrist. She has severe dementia.Pt not reporting pain.I reviewed medications ordered & given.I spoke with her RN re: giving zyprexa ordered q6, given just after 0100 am today. Also requested that analgesic be given prior to planned transport home via [facility] at 11 am. Pt will be followed by hospice on d/c with [facility] hospice. When I went to the room, pt in monico vest and appeared asleep with eyes closed supine in bed. She is moving lower jaw and turning feet back and forth slowly in bed. Breathing unlabored. She has had minimal PO intake. She did not appear in distress. I did not disturb or wake her at this time.
[2018-12-02] MEDS ORDERED: TOBRAMYCIN BOTHEYES (10:57)
[2018-12-02] MEDS ORDERED: Super B-50 Com1 EACH PO (10:58)
--- NOTE | 2018-12-02 11:07 | NUR ---
DC'D HOME VIA W/C TRANSPORT, DC INSTRUCTIONS GIVEN TO DAUGHTER, VERBALIZED UNDERSTANDING.
--- NOTE | 2018-12-02 17:15 | NUR ---
Spiritual Care initial visit: Mrs. Lombardi was quite confused and pulling at post-op dressings. She is very [place] and between that and her confusion, meaningful conversation was impossible. Informed RN of pt's wound dressing removal with immediate response. Mrs. Lombardi is being discharged on hospice soon.
== END 2018-12-02 11:04 | disposition home health service (06) | DRG 470 ==
LOC: ER 09:17 → SURS 11:18 → ERHOLD 11:18 → SURS 13:35
PROVIDERS: Internal Medicine; Orthopaedic Surgery; Physician Assistant; ADMIT Hospitalist
PROC: 0SRS0JZ Replacement of Left Hip Joint, Femoral Surface with Synthetic Substitute, Open Approach (ICD-10-PCS; principal; 2018-11-25 12:30)
PROC: 0RSWXZZ Reposition Right Finger Phalangeal Joint, External Approach (ICD-10-PCS; 2018-11-29)
DX: S72.001A Fracture of unspecified part of neck of right femur, initial encounter for closed fracture (principal); W06.XXXA Fall from bed, initial encounter; Z91.81 History of falling; Z79.01 Long term (current) use of anticoagulants; G30.9 Alzheimer's disease, unspecified; F02.80 Dementia in other diseases classified elsewhere, unspecified severity, without behavioral disturbance, psychotic disturbance, mood disturbance, and anxiety; I48.0 Paroxysmal atrial fibrillation; J44.9 Chronic obstructive pulmonary disease, unspecified; I10 Essential (primary) hypertension; F41.8 Other specified anxiety disorders; S62.637A Displaced fracture of distal phalanx of left little finger, initial encounter for closed fracture; I95.1 Orthostatic hypotension; S62.615A Displaced fracture of proximal phalanx of left ring finger, initial encounter for closed fracture; Y92.230 Patient room in hospital as the place of occurrence of the external cause; Y99.9 Unspecified external cause status; Z99.81 Dependence on supplemental oxygen; Z78.1 Physical restraint status
CPT/HCPCS: 36415; 72170; 73130; 73502; 80048; 80053; 81001; 85025; 86850; 86900; 86901; 87086; 88305; 88311; 93005; 93010; 94640; 94760; 97162; 97530; 99285-25; A9270-GY; C1776; J0690; J2405; J3010; J3480; J7030; J7120; J7512